=== PATIENT | male | born 1945 | race African-American/Black ===

== ENCOUNTER 2017-09-04 11:56 | Emergency (ER) | payer OTHER ==
[2017-09-04] MEDS ORDERED: Acetaminophen 500 MG TAB ONE (12:30)
== END 2017-09-04 12:52 | disposition home or self-care (01) ==
LOC: NAV ERS 11:56
DX: S20.221A Contusion of right back wall of thorax, initial encounter (principal); I10 Essential (primary) hypertension; M10.9 Gout, unspecified; E78.00 Pure hypercholesterolemia, unspecified; Z79.899 Other long term (current) drug therapy; W07.XXXA Fall from chair, initial encounter
CPT/HCPCS: 99283

== ENCOUNTER 2018-04-28 12:39 | Emergency (ER) | payer MEDICARE, OTHER ==
[2018-04-28] MEDS ORDERED: Lidocaine 1% w/Epinephrine 1:100K 30 ML VIAL ONE (12:56)
[2018-04-28] MEDS ORDERED: Sodium Bicarb 5 MEQ/10 ML Abboject 4.2% SYRINGE ONE (13:29)
[2018-04-28] MEDS ORDERED: Sodium Bicarbonate 2.5 MEQ/5 ML VIAL ONE (13:30)
[2018-04-28] MEDS ORDERED: Adacel (T-DAP) 0.5 ML VIAL ONE (14:16)
--- NOTE | 2018-04-28 14:29 | CT ---
CT CERVICAL SPINE NONCONTRAST: Date: 04/28/18 HISTORY: Fall. Neck injury. FINDINGS: There is reversal of the normal lordotic curvature. Vertebral body heights are maintained. Prominent osteophytosis throughout the vertebral bodies. Posterior osteophyte/disc complexes at the C3-4, C4-5, C5-6, and C6-7 levels. Cervicothoracic junction is intact. No acute fracture or dislocation. Promine nt calcification within the arterial structures. IMPRESSION: 1. Degenerative changes cervical spine. No acute osseous abnormalities are demonstrated. 2. Atherosclerosis. POS: [facility]
== END 2018-04-28 14:43 | disposition home or self-care (01) ==
LOC: NAV ERS 12:39
DX: S01.111A Laceration without foreign body of right eyelid and periocular area, initial encounter (principal); I10 Essential (primary) hypertension; M10.9 Gout, unspecified; E78.00 Pure hypercholesterolemia, unspecified; Z79.899 Other long term (current) drug therapy; W22.8XXA Striking against or struck by other objects, initial encounter
CPT/HCPCS: 12013; 72125; 90471; 90715; J2001